=== PATIENT | female | born 1955 | race Caucasian/White ===

== ENCOUNTER 2024-06-26 07:14 | Outpatient (CLI) | payer OTHER | END 2024-06-26 07:24 | disposition home or self-care (01) | LOC: TOM 07:14 | PROVIDERS: ATTEND Surgery | DX: K80.20 Calculus of gallbladder without cholecystitis without obstruction (principal) | CPT/HCPCS: 71046; 74177; Q9965 ==

== ENCOUNTER 2024-06-29 07:57 | Outpatient (CLI) | payer OTHER | END 2024-06-29 08:01 | disposition home or self-care (01) | LOC: SONOGRAMA 07:57 | PROVIDERS: ATTEND Surgery | DX: K80.20 Calculus of gallbladder without cholecystitis without obstruction (principal) ==

== ENCOUNTER 2024-07-24 05:10 | Day surgery (SDC) | payer OTHER ==
[2024-07-17 12:56] VITALS: BP 120/77
[2024-07-17 14:10] LABS: PH,URINE 5.5 (5.0-8.0); URINE APPEARANCE Clear; URINE BILIRRUBIN Negative (NEGATIVE); URINE BLOOD Negative; URINE COLOR Yellow; URINE GLUCOSE Negative (NEGATIVE); URINE KETONE Negative (NEGATIVE); URINE LEUKOCYTE Trace; URINE NITRATE Negative; URINE PROTEIN Negative (NEGATIVE); URINE UROBILINOGEN 0.2 E.U./dl
[2024-07-17 14:14] LABS: URINE BACTERIA 163.7 uL (0.0-1933); URINE EPITHELIAL CELLS 19.6 uL (0.0-38.8); URINE RBC 7.4 uL (0.0-20.8); URINE WBC 12.9 uL (0.0-23.2)
[~2024-07-24] VITALS: Ht 166.4 cm; Wt 56.7 kg
[~2024-07-24 05:10] MED LIST: CYMBALTA60 MG PO
[2024-07-24] MEDS ORDERED: CEFAZOLIN SODIUM 1,000 MG VIAL IV ONE (08:30)
[2024-07-24] MEDS ORDERED: MORPHINE SULFATE 4 MG/ML VIAL IV ONE ×2 (10:10→10:40)
== END 2024-07-24 12:50 | disposition home or self-care (01) ==
LOC: CIR.AMB 05:10
PROVIDERS: ATTEND Surgery
DX: K80.10 Calculus of gallbladder with chronic cholecystitis without obstruction (principal)